=== PATIENT | female | born 1995 | race Two or more races ===

== ENCOUNTER 2016-12-19 15:58 | Emergency (ER) | payer MEDICAID ==
[~2016-12-19] VITALS: Ht 172.7 cm; Wt 95.3 kg
[2016-12-19 16:45] VITALS: BP 159/100
[2016-12-19] MEDS ORDERED: ONDANSETRON HCL 4 MG/2 ML VIAL IM ONE (17:15)
[2016-12-19] MEDS ORDERED: METHOCARBAMOL 500 MG TAB PO ONE (17:15)
[2016-12-19] MEDS ORDERED: HYDROmorphone HCL 2 MG/ML VL IM ONE (17:15)
== END 2016-12-19 19:57 | disposition home or self-care (01) ==
LOC: ER 16:04
DX: S30.0XXA Contusion of lower back and pelvis, initial encounter (principal); V47.5XXA Car driver injured in collision with fixed or stationary object in traffic accident, initial encounter; Y93.89 Activity, other specified; Y99.8 Other external cause status; Y92.488 Other paved roadways as the place of occurrence of the external cause
CPT/HCPCS: 71250; 72131; 74176; 81025; 96372; 99284; J1170; J2405